=== PATIENT | female | born 1990 | race Caucasian/White ===

== ENCOUNTER 2024-03-26 02:00 | Inpatient (IN) ==
[2024-03-26] MEDS ORDERED: miSOPROStoL 200 MCG TABLET BC PRN (02:20)
[2024-03-26] MEDS ORDERED: LACTATED RINGERS 1,000 ML IV PRN (02:20)
[2024-03-26] MEDS ORDERED: OXYTOCIN/SODIUM CHLORIDE 500 ML IV PRN ×2 (02:20→02:41)
[2024-03-26] MEDS ORDERED: TRANEXAMIC ACID IN NACL 1,000 MG/100 ML BAG IV PRN (02:20)
[2024-03-26] MEDS ORDERED: miSOPROStoL 200 MCG TABLET PR PRN (02:20)
[2024-03-26] MEDS: OXYTOCIN 10 UNIT/ML VIAL IVP ONE (02:29)
--- NOTE | 2024-03-26 02:40 | DELIVERY NOTE ---
Delivery Note Labor Labor: positive Other (Spontaneous, delivery of outside of hospital ) Delivery Method Infant Delivery Method: positive Spontaneous vaginal delivery Presentation Presentation: positive Vertex Amniotic Fluid Description Amniotic Fluid Description: positive Other (meconium) Laceration Laceration: positive None Delivery Outcome Delivery Outcome: positive Livebirth Cord Cord: positive 3 vessels Placenta Placenta: positive Intact and Spontaneous Estimated Blood Loss Estimated Blood Loss (in cc): 50 Delivery Comments (Free Text/Narrative) Delivery Comments (Free Text/Narrative): Ирина reported contractions starting around midnight. She has SROM with meconium and spontaneous vaginal delivery of the infant in the car on the way to the hospital. On my arrival, the placenta was still in situ. Placenta was delivered intact with gentle traction on the cord and maternal pushing effort. IM pitocin was administered. Excellent uterine tone was noted. The perineum was inspected and without laceration. Perineal hemostasis noted. Brinda Rasheed MD
[2024-03-26] MEDS ORDERED: WITCH HAZEL/GLYCERIN 1 PAD TOP PRN (02:41)
[2024-03-26] MEDS ORDERED: IBUPROFEN 600 MG TABLET PO PRN (02:41)
[2024-03-26] MEDS ORDERED: NALOXONE 0.4 MG/ML VIAL IVP PRN (02:41)
[2024-03-26] MEDS ORDERED: LABETALOL 20 MG/4 ML SYRINGE IVP PRN ×2 (02:41)
[2024-03-26] MEDS ORDERED: NIFEdipine 10 MG CAPSULE PO PRN (02:41)
[2024-03-26] MEDS ORDERED: oxyCODONE 5 MG TABLET PO PRN (02:41)
[2024-03-26] MEDS ORDERED: ACETAMINOPHEN 500 MG TABLET PO PRN (02:41)
[2024-03-26] MEDS ORDERED: LABETALOL 5 MG/1 ML 20 ML MDV IVP PRN (02:41)
[2024-03-26] MEDS ORDERED: hydrALAZINE INJ 20 MG/ML VIAL IVP PRN ×2 (02:41)
[2024-03-26] MEDS ORDERED: SIMETHICONE CHEW 80 MG TABLET PO PRN (02:41)
--- NOTE | 2024-03-26 02:49 | HISTORY & PHYSICAL EXAMINATION ---
Admit History Smoking Status: Never smoker Other Maternal History Other Maternal History: HPI: Ирина is a 33 yo, now at 39w4d who presents to L&D with precipitous of infant in the car on the way to the hospital, placenta in situ. She reports that contractions started around midnight. Thought she had more time to make it to the hospital so waited for her mom to arrive at her house before leaving. monitoring form, copied from record: Expected Delivery Route/Plan vaginal delivery likely with epidural Contraception: Possible vasectomy. Also considering bilateral salpingectomy. Would like BS if needed. Specific Issues/Plans H/o macrosomia, 9lb8oz first . Denies h/o gDM. 1hr 09/26 was 122. patient was also 9.5 lbs at . Declines growth US at visit on 02/09. partner Simone, son 4, daughter 2 yo. monica, owns [employer]. stress incontinence. Buff Muff and PT ordered with Eula Laura DPT Initial labs: normal CBC: H/H- 12.7/39.0 plt 217 PAP: 09/08 NILM, HPV neg HSV: denies in self and partner Genetic testing: declines. FAS: Placenta:Anterior w/o previa 50gm OGCT: 100 TDAP:12/28 Breast Pump:has one RSV 02/09 3rd trimester H/H 12.0/36.7 PLT 185 RPR NR GBS: 03/02/2024 positive PE: Vitals signs pending Gen: NAD Resp: non labored respirations Chest: non labored respirations Pelvic: see delivery summary Labs: pending A/P: 33 yo at 39w4d s/p precipitous outside , GBS +. Routine care. 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
[2024-03-26 03:02] LABS: BASOPHILS # (AUTO) 0.1 10^3/uL (0.0-0.1); BASOPHILS % (AUTO) 0.5 %; EOSINOPHILS # (AUTO) 0.1 10^3/uL (0.0-0.7); HCT - HEMATOCRIT 42.2 % (37.0-47.0); LYMPHOCYTES # (AUTO) 2.4 10^3/uL (1.5-3.5); LYMPHOCYTES % (AUTO) 20.8 %; MEAN CORPUSCULAR HEMOGLOBIN 27.7 pg (27.0-31.0); MEAN CORPUSCULAR HGB CONC 30.8 g/dL (32.0-36.0); MONOCYTES # (AUTO) 0.9 10^3/uL (0.0-1.0); MONOCYTES % (AUTO) 7.8 %; NEUTROPHILS % (AUTO) 69.5 %; PLT - PLATELET COUNT 216 10^3/uL (130-450); RED BLOOD COUNT 4.69 10^6/uL (4.20-5.40); RED CELL DISTRIBUTION WIDTH 13.6 % (12.0-15.0); WHITE BLOOD COUNT 11.5 x10^3/uL (4.8-10.8)
[2024-03-26] MEDS ORDERED: OXYTOCIN IM SCH (03:15)
[2024-03-26] MEDS: DOCUSATE SODIUM 100 MG CAPSULE PO SCH (10:06)
--- NOTE | 2024-03-26 13:01 | PROVIDER PROGRESS NOTE ---
Progress Note Progress Note Progress Note: Discussed evaluation with patient. She does desire to proceed while she is here if possible. She desires a tubal ligation. We discussed the risks, alternatives, benefits to this. We discussed long-acting control such as IUDs and implants. We had discussion about partner vasectomy and the pros and cons to this including a smaller surgery, and easier recovery. We discussed the general risk of surgery including infection, bleeding, damage to other organs, needing a larger incision. Specific to tubal ligation, we discussed the risk of regret, and discussed that regret is greater in those under 30, without children, and not in stable relationships. Patient says she is confident in her decision to not have any more children. We also discussed the risk of failure, and that less than 1/100 tubal ligation fail, but if it did, she would be at increased risk of ectopic . Patient desires to proceed with bilateral salpingectomy via mini laparotomy tomorrow. N.p.o. after midnight. And with patient. OR notified. Plan on regional anesthesia.
[2024-03-26] MEDS: MEASLES,MUMPS & RUBELLA VACC 0.5 ML VIAL SUBQ ONE (16:36)
--- NOTE | 2024-03-27 08:06 | PROVIDER PROGRESS NOTE ---
Assessment/Plan Problem List (1) Encounter for sterilization: Assessment/Plan: -Counseling salpingectomy she desires a tubal ligation. We discussed the risks, alternatives, benefits to this. We discussed long-acting control such as IUDs and implants. We had discussion about partner vasectomy and the pros and cons to this including a smaller surgery, and easier recovery. We discussed the general risk of surgery including infection, bleeding, damage to other organs, needing a larger incision. Specific to tubal ligation, we discussed the risk of regret, and discussed that regret is greater in those under 30, without children, and not in stable relationships. Patient says she is confident in her decision to not have any more children. We also discussed the risk of failure, and that less than 1/100 tubal ligation fail, but if it did, she would be at increased risk of ectopic . Patient desires to proceed with bilateral tubal ligation. - (2) care and examination of lactating mother: Assessment/Plan: Routine care Current Meds Current Meds: Current Medications Generic Name Dose Route Start Last Admin Trade Name Freq PRN Reason Stop Dose Admin Acetaminophen 1,000 mg 03/26/24 02:41 Acetaminophen 500 Mg Tablet PO Q8HR PRN Mild Pain or Fever>38C(100.4F) Docusate Sodium 100 mg 03/26/24 09:00 03/26/24 21:51 Docusate Sodium 100 Mg Capsule PO Not Given BID ИВАН Hydralazine HCl 10 mg 03/26/24 02:41 Hydralazine Inj 20 Mg/Ml Vial IVP .ONCE PRN SBP> or= 160 OR DBP> or= 110 Protocol Hydralazine HCl 5 - 10 mg 03/26/24 02:41 Hydralazine Inj 20 Mg/Ml Vial IVP Q20M PRN SBP >=160 and/or DBP >=110 Protocol Lactated Ringer's 500 mls @ 999 mls/hr 03/26/24 02:20 Lr IV PRN PRN Abdominal Pain Oxytocin/Sodium Chloride 500 mls @ 999 mls/hr 03/26/24 02:20 Pitocin/Sodium Chloride IV PRN PRN POST- HEMORR PREVENTION Protocol 999 MILLIUNIT/MIN Tranexamic Acid 1,000 mg in 100 mls @ 600 mls/hr 03/26/24 02:20 Tranexamic 1,000 Mg/100ml-Nacl IV Q30M PRN EBL >1200mL and within 3hr Oxytocin/Sodium Chloride 500 mls @ 999 mls/hr 03/26/24 02:41 Pitocin/Sodium Chloride IV PRN PRN POST- HEMORR PREVENTION Protocol 999 MILLIUNIT/MIN Ibuprofen 600 mg 03/26/24 02:41 Ibuprofen 600 Mg Tablet PO Q6HR PRN Moderate Pain (Level 4-6) Labetalol HCl 20 - 80 mg 03/26/24 02:41 Labetalol 5 Mg/1 Ml 20 Ml Mdv IVP Q10M PRN SBP> or= 160 OR DBP> or= 110 Protocol Labetalol HCl 20 - 40 mg 03/26/24 02:41 Labetalol 20 Mg/4 Ml Syringe IVP Q10M PRN SBP> or= 160 OR DBP> or= 110 Protocol Labetalol HCl 20 mg 03/26/24 02:41 Labetalol 20 Mg/4 Ml Syringe IVP .ONCE PRN SBP >=160 and/or DBP >=110 Protocol Misoprostol 600 mcg 03/26/24 02:20 Misoprostol 200 Mcg Tablet BC .ONCE PRN Hemorrhage Misoprostol 800 mcg 03/26/24 02:20 Misoprostol 200 Mcg Tablet TX .ONCE PRN Hemorrhage Naloxone HCl 0.4 mg 03/26/24 02:41 Naloxone 0.4 Mg/Ml Vial IVP .ONCE PRN Opioid Overdose Nifedipine 10 - 20 mg 03/26/24 02:41 Nifedipine 10 Mg Capsule PO Q20M PRN SBP >=160 and/or DBP >=110 Protocol Oxycodone HCl 5 mg 03/26/24 02:41 Oxycodone 5 Mg Tablet PO Q4HR PRN Severe Pain 6-10 Simethicone 80 mg 03/26/24 02:41 Simethicone Chew 80 Mg Tablet PO TID PRN Gas Witch Maricel/Glycerin 1 pad 03/26/24 02:41 Witch Maricel/Glycerin 1 Pad TOP PRN PRN ITCHING Lab Result 03/26/24 02:35 Additional Planning My Orders: My Active Orders 03/26/24 20:50 CBC - COMP BLD CT W/AUTO DIFF [HEME] Routine CMP [COMPREHENSIVE METABOLIC PANEL] [CHEM] Routine Objective Vital Signs: Vital Signs - 24 hr 03/26/24 12:00 03/26/24 16:30 03/26/24 20:23 Temperature 37.1 C 36.3 C L 37.0 C Temperature Source Oral Oral Axillary Pulse Rate [Brachial] 86 84 88 Respiratory Rate 18 14 Blood Pressure [Left] 131/95 H 135/90 H 132/92 H O2 Saturation 97 Sedation scale 0-Fully awake 0-Fully awake 0-Fully awake Pain Intensity 0 0 0 03/27/24 01:30 03/27/24 05:29 Temperature 37.0 C Temperature Source Axillary Pulse Rate [Brachial] 87 78 Respiratory Rate 15 Blood Pressure [Left] 128/90 120/86 O2 Saturation Sedation scale 0-Fully awake 0-Fully awake Pain Intensity 0 0 Oxygen O2 Source Room air Results Results: Laboratory Results WBC 11.5 x10^3/uL (4.8-10.8) H 03/26/24 02:35 RBC 4.69 10^6/uL (4.20-5.40) 03/26/24 02:35 Hgb 13.0 g/dL (12.0-16.0) 03/26/24 02:35 Hct 42.2 % (37.0-47.0) 03/26/24 02:35 MCV 90.0 fL (81.0-99.0) 03/26/24 02:35 MCH 27.7 pg (27.0-31.0) 03/26/24 02:35 MCHC 30.8 g/dL (32.0-36.0) L 03/26/24 02:35 RDW 13.6 % (12.0-15.0) 03/26/24 02:35 Plt Count 216 10^3/uL (130-450) 03/26/24 02:35 MPV 10.0 fL (7.9-10.8) 03/26/24 02:35 Neut # (Auto) 8.0 10^3/uL (1.5-6.6) H 03/26/24 02:35 Lymph # (Auto) 2.4 10^3/uL (1.5-3.5) 03/26/24 02:35 [place] # (Auto) 0.9 10^3/uL (0.0-1.0) 03/26/24 02:35 Eos # (Auto) 0.1 10^3/uL (0.0-0.7) 03/26/24 02:35 Baso # (Auto) 0.1 10^3/uL (0.0-0.1) 03/26/24 02:35 Absolute Nucleated RBC 0.00 x10^3/uL 03/26/24 02:35 Nucleated RBC % 0.0 /100WBC 03/26/24 02:35 Blood Type B POSITIVE 03/26/24 02:35 Antibody Screen NEGATIVE 03/26/24 02:35 Current Medications Current Medications Current Medications: Current Medications Generic Name Dose Route Start Last Admin Trade Name Freq PRN Reason Stop Dose Admin Acetaminophen 1,000 mg 03/26/24 02:41 Acetaminophen 500 Mg Tablet PO Q8HR PRN Mild Pain or Fever>38C(100.4F) Docusate Sodium 100 mg 03/26/24 09:00 03/26/24 21:51 Docusate Sodium 100 Mg Capsule PO Not Given BID [facility] Hydralazine HCl 10 mg 03/26/24 02:41 Hydralazine Inj 20 Mg/Ml Vial IVP .ONCE PRN SBP> or= 160 OR DBP> or= 110 Protocol Hydralazine HCl 5 - 10 mg 03/26/24 02:41 Hydralazine Inj 20 Mg/Ml Vial IVP Q20M PRN SBP >=160 and/or DBP >=110 Protocol Lactated Ringer's 500 mls @ 999 mls/hr 03/26/24 02:20 Lr IV PRN PRN Abdominal Pain Oxytocin/Sodium Chloride 500 mls @ 999 mls/hr 03/26/24 02:20 Pitocin/Sodium Chloride IV PRN PRN POST- HEMORR PREVENTION Protocol 999 MILLIUNIT/MIN Tranexamic Acid 1,000 mg in 100 mls @ 600 mls/hr 03/26/24 02:20 Tranexamic 1,000 Mg/100ml-Nacl IV Q30M PRN EBL >1200mL and within 3hr Oxytocin/Sodium Chloride 500 mls @ 999 mls/hr 03/26/24 02:41 Pitocin/Sodium Chloride IV PRN PRN POST- HEMORR PREVENTION Protocol 999 MILLIUNIT/MIN Ibuprofen 600 mg 03/26/24 02:41 Ibuprofen 600 Mg Tablet PO Q6HR PRN Moderate Pain (Level 4-6) Labetalol HCl 20 - 80 mg 03/26/24 02:41 Labetalol 5 Mg/1 Ml 20 Ml Mdv IVP Q10M PRN SBP> or= 160 OR DBP> or= 110 Protocol Labetalol HCl 20 - 40 mg 03/26/24 02:41 Labetalol 20 Mg/4 Ml Syringe IVP Q10M PRN SBP> or= 160 OR DBP> or= 110 Protocol Labetalol HCl 20 mg 03/26/24 02:41 Labetalol 20 Mg/4 Ml Syringe IVP .ONCE PRN SBP >=160 and/or DBP >=110 Protocol Misoprostol 600 mcg 03/26/24 02:20 Misoprostol 200 Mcg Tablet BC .ONCE PRN Hemorrhage Misoprostol 800 mcg 03/26/24 02:20 Misoprostol 200 Mcg Tablet TX .ONCE PRN Hemorrhage Naloxone HCl 0.4 mg 03/26/24 02:41 Naloxone 0.4 Mg/Ml Vial IVP .ONCE PRN Opioid Overdose Nifedipine 10 - 20 mg 03/26/24 02:41 Nifedipine 10 Mg Capsule PO Q20M PRN SBP >=160 and/or DBP >=110 Protocol Oxycodone HCl 5 mg 03/26/24 02:41 Oxycodone 5 Mg Tablet PO Q4HR PRN Severe Pain 6-10 Simethicone 80 mg 03/26/24 02:41 Simethicone Chew 80 Mg Tablet PO TID PRN Gas Witch Maricel/Glycerin 1 pad 03/26/24 02:41 Witch Maricel/Glycerin 1 Pad TOP PRN PRN ITCHING HPI Comments Details: Subjective Patient reports she is doing well. Lochia appropriate. Denies heavy bleeding. Ambulating. Pelvic and abdominal pain well-controlled. Tolerating oral intake. Diet: Regular. Voiding without difficulty. Passing flatus. Denies BM. Patient is bonding with baby in room Breast feeding going well. Denies feeling lightheaded, dizzy or excessively fatigued. Control: Desires tubal ligation Objective General: Alert, oriented, no apparent distress. Cardiovascular: Regular rate. Regular rhythm. Lungs: No increased work of breathing. Clear to auscultation bilaterally Abdomen: Uterus firm. Below umbilicus. No guarding or rebound. Extremities: No pain on palpation. No cords palpated. Distal pulses intact.
[2024-03-27 08:31] LABS: BASOPHILS # (AUTO) 0.1 10^3/uL (0.0-0.1); EOSINOPHILS # (AUTO) 0.1 10^3/uL (0.0-0.7); EOSINOPHILS % (AUTO) 1.4 %; HCT - HEMATOCRIT 37.5 % (37.0-47.0); HGB - HEMOGLOBIN 11.9 g/dL (12.0-16.0); LYMPHOCYTES # (AUTO) 2.1 10^3/uL (1.5-3.5); LYMPHOCYTES % (AUTO) 29.4 %; MEAN CORPUSCULAR HEMOGLOBIN 27.9 pg (27.0-31.0); MEAN CORPUSCULAR HGB CONC 31.7 g/dL (32.0-36.0); MEAN PLATELET VOLUME 9.7 fL (7.9-10.8); MONOCYTES # (AUTO) 0.6 10^3/uL (0.0-1.0); MONOCYTES % (AUTO) 8.8 %; NEUTROPHILS # (AUTO) 4.1 10^3/uL (1.5-6.6); NEUTROPHILS % (AUTO) 58.8 %; PLT - PLATELET COUNT 194 10^3/uL (130-450); RED BLOOD COUNT 4.26 10^6/uL (4.20-5.40); RED CELL DISTRIBUTION WIDTH 13.8 % (12.0-15.0)
[2024-03-27 08:41] LABS: ALBUMIN 3.6 g/dL (3.2-5.5); ALBUMIN/GLOBULIN RATIO 1.4 (1.0-2.2); BILIRUBIN,TOTAL 0.3 mg/dL (0.2-1.0); CALCIUM 8.8 mg/dL (8.5-10.3); CREATININE 0.4 mg/dL (0.6-1.3); POTASSIUM 4.1 mmol/L (3.5-4.5); TOTAL PROTEIN 6.1 g/dL (6.4-8.9)
[2024-03-27] MEDS ORDERED: BUPIVACAINE 0.25% PF 30 ML VIAL ONE (09:31)
--- NOTE | 2024-03-27 10:18 | ANESTHESIA PROCEDURE NOTE ---
Pre-Anesthesia VS, & Labs Diagnosis Surgical Diagnosis:: desires sterilization Procedure Procedure: BTL Vitals Vital Signs: Temp Pulse Resp BP Pulse Ox 37.0 C 78 15 120/86 97 03/27/24 01:30 03/27/24 05:29 03/27/24 01:30 03/27/24 05:29 03/26/24 20:23 NPO NPO: >8 hours Is Patient ?: No Lab Results Current Lab Results: Laboratory Tests 03/27/24 08:17: WBC 7.0, RBC 4.26, Hgb 11.9 L, Hct 37.5, MCV 88.0, MCH 27.9, M CHC 31.7 L, RDW 13.8, Plt Count 194, MPV 9.7, Neut # (Auto) 4.1, Lymph # (Auto) 2.1, [place] # (Auto) 0.6, Eos # (Auto) 0.1, Baso # (Auto) 0.1, Absolute Nucleated RBC 0.00, Nucleated RBC % 0.0, Sodium 138, Potassium 4.1, Chloride 103, Carbon Dioxide 27, Anion Gap 8.0, BUN 11, Creatinine 0.4 L, Estimated GFR (MDRD) 184, Glucose 78, Calcium 8.8, Total Bilirubin 0.3, AST 22, ALT 13, Alkaline Phosphatase 180 H, Total Protein 6.1 L, Albumin 3.6, Globulin 2.5, Albumin/Globulin Ratio 1.4 03/26/24 02:35: WBC 11.5 H, RBC 4.69, Hgb 13.0, Hct 42.2, MCV 90.0, MCH 27.7, M CHC 30.8 L, RDW 13.6, Plt Count 216, MPV 10.0, Neut # (Auto) 8.0 H, Lymph # (Auto) 2.4, [place] # (Auto) 0.9, Eos # (Auto) 0.1, Baso # (Auto) 0.1, Absolute Nucleated RBC 0.00, Nucleated RBC % 0.0, Blood Type B POSITIVE, Antibody Screen NEGATIVE 03/27/24 08:17 03/27/24 08:17 Meds/Allgy Home Medications Ambulatory Orders Medication Instructions Recorded Confirmed vits no.126-ferrous fum 1 tab PO QDAY 02/21/24 03/27/24 28 mg iron-folic acid 800 mcg tablet (Classic ) acetaminophen 325 mg capsule 325 mg PO Q4H PRN pain 03/27/24 03/27/24 Allergies Allergies Allergy/AdvReac Type Severity Reaction Status Date / Time No Known Drug Allergies Allergy Verified 03/23/24 13:00 [facility] Medical History Medical History (Updated 03/27/24 @ 08:06 by Elvin Waite MD) Other benign neoplasm of skin, unspecified Nevi, multiple Acne cystica weight 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 grams or more Family History Family History Mother Diabetes Grandfather Melanoma Social History Social History Smoking Status: Never smoker Second hand tobacco smoke exposure: No Do you dip or chew tobacco?: No Do you vape?: No Living arrangement: At home Marital Status: Single History of Abuse: No ETOH Use: None Substance Use: denies use Are you sexually active?: Yes Control Method: None Occupation: [employer] Anesthesia Exam (Expanded) Exam General: Alert, Oriented x3 and Cooperative Dental: WNL Mouth Openin Fingerbreadth Neck Mobility: Normal Mallampati classification: I Thyromental Distance: 4-6 cm Respiratory: Lungs clear Cardiovascular: Regular rate Plan Problem List (1) Encounter for sterilization: (2) care and examination of lactating mother: Plan Anesthesia Type: Spinal Regional Block: Per Surgeon's request for Post Op pain control Consent for Procedure(s) Verified and Reviewed: Yes Code Status: Attempt Resuscitation ASA Classification ASA classification: 2-Mild systemic disease Is this case an emergency?: No
[2024-03-27] MEDS ORDERED: fentaNYL 100 MCG/2 ML VIAL ONE (10:32)
[2024-03-27] MEDS ORDERED: MIDAZOLAM 2 MG/2 ML VIAL ONE (10:32)
--- NOTE | 2024-03-27 10:43 | PHARMACY PROGRESS NOTE ---
Best Possible Medication History Admit Date and Time: 03/26/24 0220 Home Medications Medication Instructions Recorded Confirmed Type vits no.126-ferrous fum 1 tab PO QDAY 02/21/24 03/27/24 History 28 mg iron-folic acid 800 mcg tablet (Classic ) acetaminophen 325 mg capsule 325 mg PO Q4H PRN pain 03/27/24 03/27/24 History Processed by: Pharmacy (Medication Reconciliation completed by Client Success SpecialistÓscar) Medications reviewed in ED?: No Medication History completed: Yes Patient Interview: Completed Secondary Source(s): Insurance records [facility] Statement: As the person ultimately responsible for medication therapy, providers are able to order a medication from an existing home medication list in [facility] via the "Reconcile Routine" prior to Confirmation of that medication by end user support specialist. Such practice is discouraged except when the physician, in their clinical judgment, deems that a medical need exists for a medication without regard to previous use.
[2024-03-27] MEDS ORDERED: ceFAZolin 1 GM VIAL ONE (11:15)
[2024-03-27] MEDS ORDERED: ACETAMINOPHEN 1,000 MG/100 ML 1,000 MG/100 ML BAG IV ONE (11:19)
[2024-03-27] MEDS ORDERED: ATROPINE ABBOJECT 1 MG/10 ML SYRINGE IVP PRN (12:13)
[2024-03-27] MEDS ORDERED: ePHEDrine 50 MG/ML VIAL IVP PRN (12:13)
[2024-03-27] MEDS ORDERED: ONDANSETRON 4 MG/2 ML VIAL IVP PRN (12:13)
[2024-03-27] MEDS ORDERED: MORPHINE 2 MG/ML CARPUJECT IVP PRN (12:13)
[2024-03-27] MEDS ORDERED: METOCLOPRAMIDE 10 MG/2 ML VIAL IVP PRN (12:13)
[2024-03-27] MEDS ORDERED: NALOXONE 0.4 MG/ML VIAL IVP PRN (12:13)
[2024-03-27] MEDS ORDERED: HYDROmorphone 0.5 MG/0.5 ML SYRINGE IVP PRN (12:13)
[2024-03-27] MEDS ORDERED: fentaNYL 100 MCG/2 ML VIAL IVP PRN (12:13)
[2024-03-27 12:24] VITALS: O2SAT 99
--- NOTE | 2024-03-27 12:30 | Discharge Summary ---
"Discharge Summary Admit Date: 03/26/24 Discharge Date: 03/27/24 Discharging Provider: Elvin Waite Code Status: Attempt Resuscitation DIAGNOSES Admission Diagnoses: Status post spontaneous vaginal delivery Delivery of live wu Discharge Diagnoses with Status of Each Condition: Status post spontaneous vaginal delivery Delivery of live wu Status post bilateral tubal ligation HPI History of Present Illness: Doing well post surgery and post vaginal delivery and after tubal ligation. Voiding spontaneously. Ambulating. l. Lochia appropriate. Denies heavy bleeding Pelvic and abdominal pain well-controlled. Tolerating oral intake. Diet: Regular. Passing flatus. Denies BM. Patient is bonding with baby in room Breast feeding going well. Denies feeling lightheaded, dizzy or excessively fatigued. Objective General: Alert, oriented, no apparent distress. Cardiovascular: Regular rate. Regular rhythm. Lungs: No increased work of breathing. Clear to auscultation bilaterally Abdomen: Uterus firm. Below umbilicus. No guarding or rebound. Incision intact Extremities: No pain on palpation. No cords palpated. Distal pulses intact. CONSULTS | PROCEDURES Consultations: Anesthesia Procedures: Tubal Ligation HOSPITAL COURSE Hospital Course: Patient presented with a vaginal delivery en route to the hospital. Mom and were doing well. She did desire a tubal ligation, so that was performed without complication on day 2. She felt well after surgery and was discharged on day 2. ALLERGIES Allergies Allergy/AdvReac Type Severity Reaction Status Date / Time No Known Drug Allergies Allergy Verified 03/23/24 13:00 MEDICATIONS Ambulatory Orders Medication Instructions Recorded Confirmed vits no.126-ferrous fum 1 tab PO QDAY 02/21/24 03/27/24 28 mg iron-folic acid 800 mcg tablet (Classic ) acetaminophen 500 mg tablet 1,000 mg (2 x 500 mg) PO Q8HR PRN 03/27/24 Mild Pain Or Fever>38c(100.4f) #90 tabs docusate sodium 100 mg capsule 100 mg PO BID #60 caps 03/27/24 ibuprofen 600 mg tablet 600 mg PO Q6HR PRN Moderate Pain 03/27/24 (Level 4-6) #60 tabs LABS 03/27/24 08:17 03/27/24 08:17 FOLLOW UP Follow Up: With [facility] in 1-2 weeks. TIME SPENT Time Spent in Discharge (Minutes): 30 Discharge Plan Discharge Patient Disposition: Home, Self Care Prescriptions: New acetaminophen 500 mg Tablet 1,000 mg PO Q8HR PRN (Reason: Mild Pain Or Fever>38c(100.4f)) Qty: 90 0RF docusate sodium 100 mg Capsule 100 mg PO BID Qty: 60 0RF ibuprofen 600 mg Tablet 600 mg PO Q6HR PRN (Reason: Moderate Pain (Level 4-6)) Qty: 60 0RF Continued Classic 28 mg iron- 800 mcg tablet 1 tab PO QDAY Discontinued acetaminophen 325 mg capsule 325 mg PO Q4H PRN (Reason: pain) Diet: Regular Print Language: Bhutanese Patient Instructions: Surgery Anesthesia After, Vaginal After, Depression Follow-up Care: Brinda Rasheed MD [Provider Admit Priv/Credential] -"
[2024-03-27] MEDS ORDERED: LACTATED RINGERS 1,000 ML IV SCH (13:00)
--- NOTE | 2024-03-27 16:43 | ANESTHESIA POST OP EVALUATION ---
Anesthesia Post Eval Post Anesthesia Eval Vitals: Last Vital Signs Temp 36.1 C L 03/27/24 12:08 Pulse 74 03/27/24 12:25 Resp 14 03/27/24 12:25 BP 118/77 03/27/24 12:25 Pulse Ox 99 03/27/24 12:25 CV Function Including HR & BP: Stable Pain Control: Satisfactory Nausea & Vomiting: Negative Mental Status: Baseline Respiratory Status: Airway Patent Hydration Status: Satisfactory Anesthesia Complications: None
--- NOTE | 2024-03-27 17:22 | Labor Flowsheet ---
Labor Flowsheet Datetime Report Generated by CPN: 03/27/2024 17:21 Datetime: 03/27/2024 08:15 VITAL SIGNS NBP Sys/Lynn/Mean (mmHg): 114 : 81 : 88 Pulse: 85 Datetime: 03/26/2024 05:30 Pain Presence: None/Denies Datetime: 03/26/2024 04:30 Stage of : Datetime: 03/26/2024 04:15 PAIN Pain Scale: 0 Datetime: 03/26/2024 02:39 SpO2 (%): 98 Datetime: 03/26/2024 02:30 Respirations: 18 Temperature (C): 36.8 Temperature Route: Oral Datetime: 03/26/2024 02:27 VAGINAL EXAM Membranes Ruptured Date/Time: 03/26/2024 01:50 Membranes Rupture Method: Spontaneous Amniotic Fluid Color: Light Meconium Amniotic Fluid Amount: Large Amniotic Fluid Odor: Normal
--- NOTE | 2024-03-27 22:39 | OPERATIVE REPORT ---
Operative Report General Admit Date: 03/26/24 Procedure Data: Operation Date: 03/27/24 10:00 Proposed Procedures p Bilateral Tubal Ligation(Bilateral) - Elvin Waite MD Actual Procedures p Bilateral Tubal Ligation(Bilateral) - Elvin Waite MD Pre-Op Diagnosis: DESIRES STERILITY Anesthesia Type Spinal Case Staff Anesthesia Provider: Juliana Olguin Assisting Provider: Brinda Rasheed Case Times Into Recovery: 03/27/24 12:08 Procedure Start: 03/27/24 11:25 Procedure End: 03/27/24 11:57 Time out: 03/27/24 11:24 Tourniquet Tourniquet #: Tourniquet Site Padding: Pressure: Applied by: Time up #1: Time Down #1: Time Up #2: Time Down #2: Pre-Op Diagnosis: Desires sterility Post Op Diagnosis: Status post bilateral salpingectomy Procedure Note Estimated Blood Loss (ml): 5 Output, Urine Amount (ml): 40 Pathology: Bilateral fallopian tubes Complications: None Other Other Information/Narrative: Prior to surgery, we discussed the risks, alternatives, benefits to tubal ligation. We discussed long-acting control such as IUDs and implants. We had discussion about partner vasectomy and the pros and cons to this including a smaller surgery, and easier recovery. We discussed the general risk of surgery including infection, bleeding, damage to other organs, needing a larger incision. Specific to tubal ligation, we discussed the risk of regret, and discussed that regret is greater in those under 30, without children, and not in stable relationships. Patient says she is confident in her decision to not have any more children. We also discussed the risk of failure, and that less than 1/100 tubal ligation fail, but if it did, she would be at increased risk of ectopic . Patient desires to proceed with bilateral tubal ligation. Patient was taken to the OR where spinal anesthesia was obtained without difficulty. The patient was placed in a dorsal supine position. Time out was taken. Abdomen was prepped and draped in usual sterile fashion. 2 g of cefazolin was administered. 2 Allis clamps were placed lateral umbilical folds, and lateral traction was applied to facilitate making an infraumbilical skin incision with scalpel. Incision was carried down to the fascia which was incised with Boggs scissors. Peritoneum was identified and was noted to be free of any adhesions was entered bluntly. Patient's left fallopian tube was then identified and brought to the incision and grasped with a Fairhope clamp. The tube was then followed up to the fimbria. The LigaSure device was then used to separate the fimbria from the ovary by the mesosalpinx and this was sequentially coagulated and cut going up the tube to the level of the cornua where the tube was then coagulated and transected. The right fallopian tube was then ligated and excised in similar fashion, although we had to separate the tube in the middle to adequately visualize the structures beneath and remove in two segments. Tube ostia were visualized, and good hemostasis noted. The peritoneum and fascia were then closed in single layer using a 0 Vicryl. The umbilical stalk was then reattached to the underlying tissue with a 2-0 Vicryl. Skin was closed with a 4-0 Vicryl in a subcuticular fashion. The patient tolerated procedure well. Sponge, lap, and needle counts were correct 2. The patient was taken to recovery room in stable condition. I appreciate the assistance of Dr. Rasheed during this procedure, and the assistance in retraction, visualization, dissection, and overall assistance during the case were instrumental to the patient's wellbeing.
== END 2024-03-27 16:30 | disposition home or self-care (01) | DRG 769 ==
LOC: WFO 02:00 → FBP 02:05
PROVIDERS: ADMIT Obstetrics & Gynecology; ATTEND Obstetrics & Gynecology
DX: Z39.0 Encounter for care and examination of mother immediately after delivery; Z30.2 Encounter for sterilization